=== PATIENT | male | born 1950 | race Caucasian/White ===

== ENCOUNTER 2016-09-01 09:08 | Outpatient (CLI) | END 2016-09-01 09:09 | disposition home or self-care (01) ==

== ENCOUNTER 2016-09-08 11:30 | Outpatient (CLI) | payer BC | END 2016-09-08 11:31 | disposition home or self-care (01) | DX: D81.9 Combined immunodeficiency, unspecified (principal) ==

== ENCOUNTER 2018-07-14 19:00 | Emergency (ER) | payer BC ==
[2018-07-14 19:07] VITALS: BP 138/85
[2018-07-14 19:37] LABS: BASOPHILS % (AUTO) 0.5 %; EOSINOPHILS % (AUTO) 0.2 %; HGB - HEMOGLOBIN 15.5 g/dL (14.0-18.0); LYMPHOCYTES # (AUTO) 0.3 10^3/uL (1.5-3.5); LYMPHOCYTES % (AUTO) 3.1 %; MEAN CORPUSCULAR HEMOGLOBIN 29.1 pg (27.0-31.0); MEAN CORPUSCULAR HGB CONC 33.1 g/dL (32.0-36.0); MEAN PLATELET VOLUME 8.5 fL (7.4-11.4); MONOCYTES # (AUTO) 0.3 10^3/uL (0.0-1.0); MONOCYTES % (AUTO) 2.8 %; NEUTROPHILS # (AUTO) 9.4 10^3/uL (1.5-6.6); NEUTROPHILS % (AUTO) 93.4 %; PLT - PLATELET COUNT 216 10^3/uL (130-450); RED BLOOD COUNT 5.33 10^6/uL (4.70-6.10); RED CELL DISTRIBUTION WIDTH 13.8 % (12.0-15.0); WHITE BLOOD COUNT 10.1 x10^3/uL (4.8-10.8)
[2018-07-14 19:46] LABS: ALBUMIN/GLOBULIN RATIO 1.2 (1.0-2.2); BILIRUBIN,TOTAL 1.1 mg/dL (0.2-1.0); CALCIUM 9.1 mg/dL (8.5-10.3); CREATININE 0.9 mg/dL (0.6-1.2); TOTAL PROTEIN 7.3 g/dL (6.7-8.2)
--- NOTE | 2018-07-14 21:04 | ED Physician Documentation ---
History of Present Illness - Stated complaint Stated Complaint: CHILLS/WEAKNESS - Chief complaint Chief Complaint: General - History obtained from History obtained from: Patient - History of Present Illness Timing: Today Pain level max: 0 Pain level now: 0 Improved by: nothing Worsened by: nothing - Additonal information Additional information: Patient is a 67-year-old male who presents to the emergency department complaining of generalized malaise today. States he just does not feel well. Unsure if he has had fevers, but has had chills. Also weakness. No abdominal pain but has noted that he has had increased belching over the past couple of days. Has a history of a perforated duodenal ulcer. Has been maintained on omeprazole since that time, 20 mg by mouth daily. No coughing. Minimal rhinorrhea, no congestion. No sore throat. No urinary symptoms. No back pain. Review of Systems Constitutional: reports: Chills. denies: Fever Ears: denies: Ear pain Nose: denies: Rhinorrhea / runny nose, Congestion Throat: denies: Sore throat Respiratory: denies: Cough, Wheezing GI: reports: Other (increased belching). denies: Abdominal Pain, Nausea, Vomiting PD PAST MEDICAL HISTORY - Past Medical History Past Medical History: No Cardiovascular: None Respiratory: None Neuro: None Endocrine/Autoimmune: None GI: Ulcers, Hiatal hernia : None HEENT: None Psych: None Musculoskeletal: None Derm: None - Past Surgical History Past Surgical History: Yes General: Appendectomy, Other Ortho: Arthroscopic surgery HEENT: Tonsil/Adenoidectomy - Present Medications Home Medications: Ambulatory Orders Medication Instructions Recorded Confirmed Cetirizine [ZyrTEC] 10 mg PO DAILY 07/06/16 07/11/16 [place]-3S/Dha/Epa/Fish Oil [Fish 1 each PO DAILY 07/06/16 07/11/16 Oil 1,200 mg Softgel] Hydrocodone/Acetaminophen [Vicodin 1 - 2 each PO Q6HR PRN #10 tablet 07/12/16 5-300 mg Tablet] - Allergies Allergies/Adverse Reactions: Allergies Allergy/AdvReac Type Severity Reaction Status Date / Time No Known Drug Allergies Allergy Verified 07/14/18 19:07 - Social History Does the pt smoke?: No Smoking Status: Never smoker Does the pt drink ETOH?: Yes Does the pt have substance abuse?: No - Immunizations Immunizations are current?: Yes - POLST Patient has POLST: No PD ED PE NORMAL - Vitals Vital signs reviewed: Yes - General General: Alert and oriented X 3, No acute distress, Well developed/nourished - HEENT HEENT: PERRL, Ears normal, Moist mucous membranes, Pharynx benign - Neck Neck: Supple, no meningeal sign, No adenopathy - Cardiac Cardiac: RRR, Strong equal pulses - Respiratory Respiratory: No respiratory distress, Clear bilaterally - Abdomen Abdomen: Soft, Non tender, Non distended - Back Back: No CVA TTP, No spinal TTP - Derm Derm: Warm and dry, No rash - Extremities Extremities: No edema - Neuro Neuro: Alert and oriented X 3 - Psych Psych: Normal mood, Normal affect Results - Vitals Vitals: Vital Signs - 24 hr 07/14/18 19:03 Temperature 36.9 C Heart Rate 73 Respiratory 16 Rate Blood Pressure 138/85 H O2 Saturation 97 Oxygen O2 Source Room air - Labs Labs: Laboratory Tests 07/14/18 07/14/18 07/14/18 19:08 19:24 19:24 WBC 10.1 RBC 5.33 Hgb 15.5 Hct 46.9 MCV 88.0 MCH 29.1 MCHC 33.1 RDW 13.8 Plt Count 216 MPV 8.5 Neut # (Auto) 9.4 H Lymph # (Auto) 0.3 L [place] # (Auto) 0.3 Eos # (Auto) 0.0 Baso # (Auto) 0.0 Absolute Nucleated RBC 0.02 Nucleated RBC % 0.2 Sodium 136 Potassium 4.7 Chloride 101 Carbon Dioxide 28 Anion Gap 7.0 BUN 19 Creatinine 0.9 Estimated GFR (MDRD) 84 L Glucose 119 H Calcium 9.1 Total Bilirubin 1.1 H AST 28 ALT 28 Alkaline Phosphatase 89 Total Protein 7.3 Albumin 4.0 Globulin 3.3 Albumin/Globulin Ratio 1.2 Lipase 47 Influenza A (Rapid) Negative Influenza B (Rapid) Negative PD MEDICAL DECISION MAKING - ED course Complexity details: reviewed results, re-evaluated patient, considered differential, d/w patient ED course: Patient is a 67-year-old male who presents to the emergency department with what appears to be a viral syndrome. He is very well-appearing, nontoxic. Afebrile. Abdomen is soft, nontender nondistended. Lungs are clear to auscultation bilaterally. No urinary symptoms. No diarrhea. Normal white blood cell count. Negative influenza testing. We will have him follow-up with his doctor for further care. Patient counseled regarding signs and symptoms for which Ronen jameson and urgent re-evaluation would be necessary. Patient with good understanding of and agreement to plan and is comfortable going home at this time This document was made in part using voice recognition software. While efforts are made to proofread this document, sound alike and grammatical errors may occur. Departure - Departure Disposition: 01 Home, Self Care Clinical Impression: Viral syndrome Condition: Good Instructions: ED Viral Syndrome Follow-Up: LARISSA MELGAR MD [Primary Care Provider] - Within 1 week (if not better) Comments: You can increase your omeprazole to 20 mg twice daily. Do this for the next 2 weeks. Return if you worsen. Return especially for development of abdominal pain, progressive weakness or fevers. Discharge Date/Time: 07/14/18 21:18
== END 2018-07-14 21:18 | disposition home or self-care (01) ==
LOC: ED 19:00
DX: B34.9 Viral infection, unspecified (principal)
CPT/HCPCS: 36415; 80053; 83690; 85025; 87275; 87276; 99282; 99283